=== PATIENT | female | born 1965 | race Caucasian/White ===

== ENCOUNTER 2016-11-04 15:35 | Emergency (ER) | payer BC, OTHER ==
[2016-11-04] MEDS ORDERED: EPINEPHrine 1 mg/ml MDV (1ml Charge) ONE (15:38)
[2016-11-04] MEDS ORDERED: methylPREDNISolone Sod Succ/PF 125 MG/2 ML VIAL ONE (15:44)
[2016-11-04] MEDS ORDERED: diphenhydrAMINE HCl 50 MG/ML 1 ML VIAL ONE (15:44)
== END 2016-11-04 19:58 | disposition home or self-care (01) ==
LOC: BURERS 15:35
DX: T63.461A Toxic effect of venom of wasps, accidental (unintentional), initial encounter (principal); T78.2XXA Anaphylactic shock, unspecified, initial encounter; K50.90 Crohn's disease, unspecified, without complications; Z79.899 Other long term (current) drug therapy
CPT/HCPCS: 96372; 96374; 96375; J0171; J1200; J2930